=== PATIENT | male | born 1940 | race Caucasian/White ===

== ENCOUNTER → 2018-11-05 | Outpatient (CLI) | payer MEDICARE, OTHER ==
[~2018-11-05] VITALS: Ht 193 cm; Wt 129.3 kg
[~2018-11-05] MED LIST: CATHETER FLUSH 10 ML SYR IV PRN; REGADENOSON 0.4 MG/5 ML SYR (LEXISCAN) IV ONE
[2018-11-05 13:22] VITALS: BP 144/76
[2018-11-05 13:26] VITALS: BP 128/70
--- NOTE | 2018-11-05 20:15 | STRESS TEST ---
DATE OF SERVICE: LEXISCAN MYOVIEW STRESS TEST REPORT REFERRING PHYSICIANS: 1. Wilbur Jones MD 2. Lali Duran APRN Baseline heart rate is 59. Baseline blood pressure 144/76. Baseline EKG is atrial fibrillation with frequent PVCs with right bundle branch block. In summary, the patient was injected with 10.84 mCi of technetium-99 Myoview and the resting images were obtained. Then, the patient received 0.4 mg of Lexiscan, followed by 32.1 mCi of technetium-99 Myoview. Throughout the test, there were no EKG changes. The resting and stress images were reviewed and compared in the short axis, horizontal long axis, and vertical long axis views. Review of the images showed decreased uptake involving the mid to apical anterior wall, true apex and inferoapical segment. There is significant fixed defect with an area of reversibility involving the mid to apical anterior wall and anterolateral wall. SSS 24, SDS 9, TID value 1.14. No gated images were done due to the irregular heartbeat. IN CONCLUSION: 1. The patient tolerated Lexiscan well. 2. No gated images were done due to the irregular heartbeat and frequent PVCs. 3. Reversible ischemia involving the mid to apical anterior wall and anterolateral wall and fixed defect involving the true apex. Job ID: [id number] DocumentID: [id number] Dictated Date: 11/05/2018 17:36:49 Kinesiotherapist Date: 11/05/2018 20:14:26 Dictated By: TORI SANCHEZ MD
== END ==
LOC: CARD 11:12 → EDSEX 11:30
PROVIDERS: ATTEND Internal Medicine Cardiovascular Disease
DX: I48.2 Chronic atrial fibrillation (principal); I10 Essential (primary) hypertension; E78.2 Mixed hyperlipidemia; I08.3 Combined rheumatic disorders of mitral, aortic and tricuspid valves; Z87.891 Personal history of nicotine dependence
CPT/HCPCS: 78452; 93017; 93306

== ENCOUNTER 2019-01-30 11:57 | Outpatient (RCR) | payer MEDICARE | END 2019-03-02 | disposition home or self-care (01) | LOC: ONC 11:57 | PROVIDERS: ATTEND Radiology Radiation Oncology | DX: Z51.0 Encounter for antineoplastic radiation therapy (principal); C44.329 Squamous cell carcinoma of skin of other parts of face; E11.9 Type 2 diabetes mellitus without complications; I10 Essential (primary) hypertension; E78.00 Pure hypercholesterolemia, unspecified; I25.2 Old myocardial infarction; Z79.82 Long term (current) use of aspirin; Z79.84 Long term (current) use of oral hypoglycemic drugs; Z79.899 Other long term (current) drug therapy | CPT/HCPCS: 77290; 77300; 77332; 77334; 77336; 99202; 99204 ==

== ENCOUNTER → 2019-05-12 | Outpatient (CLI) | payer MEDICARE ==
[~2019-05-12] MED LIST changes: +HOLD METFORMIN - RECEIVED CONTRAST 20 ML VIAL IV SCH; +IOHEXOL 350 MG/ML 100 ML (OMNIPAQUE 350) VIAL IV ONE; +NS 100 ML (IVPB) BAG IV ONE; -REGADENOSON 0.4 MG/5 ML SYR (LEXISCAN) IV ONE
--- NOTE | 2019-05-12 11:45 | Diagnostic Imaging Report ---
PROCEDURE: CT head with and without contrast. TECHNIQUE: Multiple contiguous axial images were obtained through the brain before and after the administration of intravenous contrast. Auto Exposure Controls were utilized during the CT exam to meet ALARA standards for radiation dose reduction. INDICATION: History of squamous cell carcinoma. COMPARISON: None. FINDINGS: The ventricles and cortical sulci are diffusely prominent, compatible with age-related volume loss. There are confluent areas of abnormal, low attenuation in the periventricular white matter. This is consistent with small vessel ischemic changes; age-indeterminate. There is no prior study available for comparison. Postcontrast images show no abnormal areas of enhancement. There is no midline shift or mass-effect. No acute intra-axial hemorrhage is seen. There are no abnormal areas of increased or decreased density to suggest acute hemorrhage or edema. No extra-axial masses or collections are present. The bony calvarium is intact. The visualized paranasal sinuses show minimal scattered mucosal thickening. The mastoid air cells are partially opacified bilaterally. IMPRESSION: 1. No acute intracranial abnormality. No CT evidence of mass, acute infarct or intracranial hemorrhage. 2. Small vessel ischemic changes in the periventricular and subcortical white matter; likely chronic. Dictated by: Dictated on workstation # [id number]
--- NOTE | 2019-05-12 11:57 | Diagnostic Imaging Report ---
Clinical indication: Patient with squamous cell cancer. Patient states routine follow-up after surgery several months ago. Exam: Axial CT scan of the neck soft tissue performed without and with 50 cc of Omnipaque 350 IV contrast. Sagittal and coronal reformatted images were created. Auto Exposure Controls were utilized during the CT exam to meet ALARA standards for radiation dose reduction. Comparison: None. Findings: There is dense contrast bolus seen within the right subclavian vein and superior vena cava with very limited contrast opacification of vessels and neck soft tissue. There are postoperative changes in the right side of the lower head and neck region with surgical clips noted. There is thickening of the right platysma muscle and fat stranding along the right side of the head and right upper neck region. The right jugular vein and carotid vein are noted. The right submandibular gland and right parotid gland are surgically absent. There is amorphous density along the right side of the neck in the postoperative area with no definite measurable mass seen. There is a 9 mm x 6 mm lymph node in the right level 2A region seen on series 2, image 39. The remainder of the lymph nodes in the right side of the neck are smaller in size. The nasopharynx, oropharynx, hypopharynx, and laryngeal soft tissue structures are unremarkable. Tonsilloliths are noted. The visualized portions of the oral cavity, and tongue are grossly unremarkable. There is asymmetry in architectural distortion involving the mylohyoid muscle and anterior digastric muscle and right submandibular and sublingual space. There are no bony erosive or destructive changes of the mandible or maxilla or cervical spine. Patient is edentulous. There is a small mucus retention cyst in the left maxillary sinus. Mastoid air cells show small amount of fluid on the right side. There is cervical spine degenerative disease with vertebral body spurs and facet arthropathy. There are calcifications seen within the right thyroid gland region. There is dependent atelectasis involving the bilateral upper lung garza. Impression: 1: Limited evaluation of the neck soft tissue with limited contrast opacification of neck vessels and soft tissue. 2: There are postop changes in the right side of the neck with surgical clips, soft tissue resection changes and anatomical distortion. There is no definite visible mass seen. There is a 9 mm x 6 mm lymph node in the right level IIA region which is the largest lymph node seen in the right neck region. Comparison to previous neck CT scans would better evaluate, if available. 3: There is small amount of fluid in the right mastoid air cells. Dictated by: Dictated on workstation # [id number]
== END ==
LOC: RAD FS 10:25
PROVIDERS: ATTEND Nurse Practitioner Family
DX: C44.329 Squamous cell carcinoma of skin of other parts of face (principal); I67.82 Cerebral ischemia; R59.0 Localized enlarged lymph nodes; Z98.890 Other specified postprocedural states; Z90.89 Acquired absence of other organs
CPT/HCPCS: 70470; 70491

== ENCOUNTER 2019-05-13 13:23 | Outpatient (RCR) | payer MEDICARE, OTHER | END 2019-06-08 | disposition home or self-care (01) | LOC: ONC 13:23 | PROVIDERS: ATTEND Radiology Radiation Oncology | DX: C44.329 Squamous cell carcinoma of skin of other parts of face (principal); E11.9 Type 2 diabetes mellitus without complications; I10 Essential (primary) hypertension; E78.00 Pure hypercholesterolemia, unspecified; I25.2 Old myocardial infarction; Z79.82 Long term (current) use of aspirin; Z79.84 Long term (current) use of oral hypoglycemic drugs; Z79.899 Other long term (current) drug therapy | CPT/HCPCS: 99212; 99213 ==

== ENCOUNTER → 2019-08-05 | Outpatient (CLI) | payer MEDICARE, OTHER ==
[2019-08-05 09:59] LABS: BUN/CREATININE RATIO 47; GFR ESTIMATED > 60
--- NOTE | 2019-08-05 12:33 | Diagnostic Imaging Report ---
INDICATION: History of skin cancer. TECHNIQUE: Routine non contrast-enhanced axial images were obtained from the skull base to the vertex. Auto Exposure Controls were utilized during the CT exam to meet ALARA standards for radiation dose reduction COMPARISON: 05/12/2019 FINDINGS: The ventricles and cortical sulci are diffusely prominent, compatible with age-related volume loss. There are confluent areas of abnormal, low attenuation in the periventricular white matter. This is consistent with chronic small vessel ischemic changes. There is no midline shift or mass-effect. No acute intra-axial hemorrhage is seen. There are no abnormal areas of increased or decreased density to suggest acute hemorrhage or edema. No extra-axial masses or collections are present. The bony calvarium is intact. The visualized paranasal sinuses show minimal scattered mucosal thickening. The mastoid air cells are partially opacified bilaterally. IMPRESSION: 1. No acute intracranial abnormality. No CT evidence of mass, acute infarct or intracranial hemorrhage. 2. Chronic small vessel ischemic changes in the deep white matter. Dictated by: Dictated on workstation # [id number]
--- NOTE | 2019-08-05 12:46 | Diagnostic Imaging Report ---
PROCEDURE: CT neck soft tissue without contrast. TECHNIQUE: Multiple contiguous axial images were obtained through the neck without the use of intravenous contrast. Auto Exposure Controls were utilized during the CT exam to meet ALARA standards for radiation dose reduction. INDICATION: Squamous cell carcinoma, right cheek. COMPARISON: 05/12/2019. FINDINGS: Examination is limited by lack of IV contrast. Again noted are the postoperative changes including multiple surgical clips in the right neck both medial and superficial to the mandible. No new soft tissue density suspicious for a mass is identified. No fluid collections are seen. No lymphadenopathy. The pharyngeal and laryngeal soft tissues are symmetric bilaterally. Tongue base, floor of the mouth, and epiglottis are grossly unremarkable. The thyroid and left submandibular and left parotid gland are negative. The right parotid gland and at least part of the right submandibular gland have been resected. Moderate spondylotic changes in the cervical spine. No acute findings. Skull base is intact. Small effusion in the right mastoid. Mild mucosal thickening in the left maxillary sinus. IMPRESSION: Stable postoperative findings in the right neck both medial and superficial to the mandible including resection of the right parotid gland. No new mass, fluid collection, or lymphadenopathy is identified on this noncontrast exam. Dictated by: Dictated on workstation # [id number]
== END ==
LOC: RAD FS 09:21
PROVIDERS: ATTEND Radiology Radiation Oncology
DX: C44.329 Squamous cell carcinoma of skin of other parts of face (principal); I67.82 Cerebral ischemia; Z98.890 Other specified postprocedural states
CPT/HCPCS: 36415; 70450; 70490; 82565; 84520

== ENCOUNTER → 2019-08-26 | Outpatient (CLI) | payer MEDICARE | LOC: EDSTATUS 06-09 13:54 → ONC 14:01 | PROVIDERS: ATTEND Radiology Radiation Oncology | DX: C44.329 Squamous cell carcinoma of skin of other parts of face (principal); E11.9 Type 2 diabetes mellitus without complications; I10 Essential (primary) hypertension; E78.00 Pure hypercholesterolemia, unspecified; I25.2 Old myocardial infarction; Z79.82 Long term (current) use of aspirin; Z79.84 Long term (current) use of oral hypoglycemic drugs; Z79.899 Other long term (current) drug therapy | CPT/HCPCS: 99213 ==

== ENCOUNTER 2019-09-17 05:36 | Outpatient (CLI) | payer MEDICARE ==
[~2019-09-17] VITALS: Ht 193 cm; Wt 112.7 kg
[2019-09-17] MEDS ORDERED: APIX5TAB PO (12:31)
[2019-09-17] MEDS ORDERED: EMPA10TA PO (12:31)
[2019-09-17] MEDS ORDERED: METF-399 PO (12:31)
[2019-09-17] MEDS ORDERED: ATEN50TA PO (12:31)
[2019-09-17] MEDS ORDERED: ASPI-586 PO (12:31)
[2019-09-17] MEDS ORDERED: OMG1KC PO (12:31)
[2019-09-17] MEDS ORDERED: GLIP5TAB13 PO (12:31)
[2019-09-17] MEDS ORDERED: MULT1CAP27 PO (12:31)
[2019-09-17] MEDS ORDERED: LISI1TAB26 PO (12:31)
== END 2019-09-17 13:09 | disposition home or self-care (01) ==
LOC: PREOP 05:36
PROVIDERS: ATTEND Otolaryngology Otolaryngology/Facial Plastic Surgery
DX: Z01.818 Encounter for other preprocedural examination (principal)

== ENCOUNTER → 2020-02-10 | Outpatient (CLI) | payer MEDICARE, OTHER ==
[~2020-02-10] MED LIST changes: +ACHD5005 PO; +APIX5TAB PO; +ASPI-586 PO; +ATEN50TA PO; +CEPH-507 PO; +EMPA10TA PO; +GLIP5TAB13 PO; +LISI1TAB26 PO; +METF-399 PO; +MULT1CAP27 PO; +OMG1KC PO
[2020-02-10 10:02] LABS: BUN/CREATININE RATIO 45; CALCIUM 9.1 MG/DL (8.5-10.1); CARBON DIOXIDE 23 MMOL/L (21-32); CHLORIDE 101 MMOL/L (98-107); CREATININE SERUM 0.99 MG/DL (0.60-1.30); GFR ESTIMATED > 60; GLUCOSE 163 MG/DL (70-105); POTASSIUM 4.5 MMOL/L (3.6-5.0); SODIUM 137 MMOL/L (135-145)
--- NOTE | 2020-02-10 12:05 | Diagnostic Imaging Report ---
CLINICAL INDICATION: Patient states he has skin cancer on right-side of jaw stated it was removed year ago. Patient with swelling on the right side of jaw. EXAM: CT scan of the neck soft tissue tissue with 75 cc of Omnipaque 350 IV contrast. Coronal and sagittal reformatted images are created. Auto Exposure Controls were utilized during the CT exam to meet ALARA standards for radiation dose reduction. COMPARISON: CT scan of the neck soft tissue dated 08/05/2019. FINDINGS: There is stable postoperative changes seen to the right perimandibular and right upper neck region with resection of the right prostate gland. There are stable amorphous soft tissue thickening and curvilinear opacities likely related to scarring. Stable small size of the partially resected right submandibular gland with surgical clips seen in the region. There is no developing mass seen, fat stranding or fluid collection. There appears to be resection of the anterior body of the right digastric muscle and mylohyoid muscle region. There is stable postoperative changes with distortion of the sublingual and submandibular regions. The left parotid gland and left submandibular glands are unremarkable. The nasopharynx, oropharynx, hypopharynx, and laryngeal soft tissue structures are stable. Tonsilliths are noted. Stable asymmetry of the arytenoid cartilages with the right side slightly more prominent than the left and slight medial position of the right true vocal cord compared to the right side. There is no measurable mass seen. There is no neck lymphadenopathy. Stable small calcifications and heterogeneous appearance of the right thyroid gland. Visualized upper lung garza are clear. Stable cervical spine degenerative disease. IMPRESSION: 1: There is no evidence of interval developing mass, inflammatory process, fluid collection, or lymphadenopathy. 2: Stable postoperative changes to the right perimandibular and submandibular region and right upper aspect of the neck. There is multiple surgical clips in the region. There is resection of right parotid gland with adjacent scarring, suspected partial resection of the right submandibular gland and right submandibular/sublingual space musculature. These have stable appearance with no developing mass. 3: Stable small calcifications and heterogeneous. If the thyroid gland has not been previously evaluated, thyroid ultrasound is suggested. Dictated by: Dictated on workstation # [id number]
== END ==
LOC: RAD FS 09:10
PROVIDERS: ATTEND Otolaryngology
DX: R22.0 Localized swelling, mass and lump, head (principal); Z85.828 Personal history of other malignant neoplasm of skin
CPT/HCPCS: 36415; 70491; 80048

== ENCOUNTER → 2020-08-26 | Outpatient (CLI) | payer MEDICARE ==
[2020-08-26 09:51] LABS: CREATININE SERUM 0.92 MG/DL (0.60-1.30); GFR ESTIMATED > 60
[2020-08-26 09:52] LABS: BUN/CREATININE RATIO 42
--- NOTE | 2020-08-26 12:15 | Diagnostic Imaging Report ---
CT HEAD W WO/NECK W Technique: CT imaging of the head without and with IV contrast. CT imaging of the neck with IV contrast. Automatic exposure controls were utilized to keep dose as low as reasonably achievable. 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 Findings: HEAD: Precontrast imaging shows no intracranial hyperdense hemorrhage or space-occupying mass. No hydrocephalus or midline shift. Elliott-white matter differentiation is well-preserved. Mild periventricular white matter hypoattenuation most compatible with chronic microvascular ischemic disease. Postcontrast imaging shows no pathologic masslike enhancement. No lytic lesion within the calvarium. Trace right mastoid effusion. NECK: Stable postoperative changes in the right aspect of the neck which include parotidectomy and at least partial removal of the right submandibular gland. Numerous surgical clips within the right aspect of the face and neck are unchanged. No cervical lymphadenopathy or new mass lesion has developed to suggest local recurrence. Calcifications in the tonsils are compatible with remote infection. Heterogeneous thyroid is unchanged with some punctate calcifications. Airway remains widely patent. No retropharyngeal fluid collection. Lung apices are clear. Impression: 1. No intracranial space-occupying mass, vasogenic edema or pathologic enhancement to suggest metastases. 2. Stable postoperative changes in the right hemiface and neck. No features of local recurrence. Dictated by: Dictated on workstation # [id number]
== END ==
LOC: RAD 09:21
PROVIDERS: ATTEND Radiology Radiation Oncology
DX: C44.329 Squamous cell carcinoma of skin of other parts of face (principal); Z98.890 Other specified postprocedural states
CPT/HCPCS: 36415; 70470; 70491; 82565; 84520

== ENCOUNTER 2020-09-08 14:20 | Outpatient (RCR) | payer MEDICARE ==
[~2020-09-08 14:20] MED LIST changes: -CATHETER FLUSH 10 ML SYR IV PRN; -HOLD METFORMIN - RECEIVED CONTRAST 20 ML VIAL IV SCH; -IOHEXOL 350 MG/ML 100 ML (OMNIPAQUE 350) VIAL IV ONE; -NS 100 ML (IVPB) BAG IV ONE
[2020-09-27] MEDS ORDERED: MULT-1136 PO (14:19)
[2020-09-27] MEDS ORDERED: GLBR5T PO (14:19)
[2020-09-27] MEDS ORDERED: APIX5TAB PO (14:19)
[2020-09-27] MEDS ORDERED: LISI20TA26 PO (14:19)
[2020-09-27] MEDS ORDERED: ATEN25TA PO (14:19)
[2020-09-27] MEDS ORDERED: ASPI-999 PO (14:19)
[2020-09-29] MEDS ORDERED: CEPH500T PO (11:01)
[2020-09-29] MEDS ORDERED: ACHD5005 PO (11:01)
[2020-11-02] MEDS ORDERED: ASPI-1238 PO (09:49)
[2020-11-02] MEDS ORDERED: APIX5TAB PO (09:49)
== END 2020-12-07 | disposition home or self-care (01) ==
LOC: ONC 14:20
PROVIDERS: ATTEND Radiology Radiation Oncology
DX: C44.320 Squamous cell carcinoma of skin of unspecified parts of face (principal); I11.0 Hypertensive heart disease with heart failure; I25.10 Atherosclerotic heart disease of native coronary artery without angina pectoris; E78.2 Mixed hyperlipidemia; I45.10 Unspecified right bundle-branch block; I48.21 Permanent atrial fibrillation; I50.22 Chronic systolic (congestive) heart failure; I65.29 Occlusion and stenosis of unspecified carotid artery; E11.610 Type 2 diabetes mellitus with diabetic neuropathic arthropathy; Z79.01 Long term (current) use of anticoagulants; Z72.0 Tobacco use; Z79.84 Long term (current) use of oral hypoglycemic drugs; Z79.82 Long term (current) use of aspirin
CPT/HCPCS: 99213

== ENCOUNTER → 2020-09-23 | Outpatient (CLI) | payer MEDICARE | LOC: CARD 11:31 | PROVIDERS: ATTEND Physician Assistant | DX: I25.10 Atherosclerotic heart disease of native coronary artery without angina pectoris (principal); I10 Essential (primary) hypertension; I08.3 Combined rheumatic disorders of mitral, aortic and tricuspid valves | CPT/HCPCS: 93306 ==

== ENCOUNTER 2020-09-27 05:28 | Outpatient (RCR) | payer MEDICARE ==
[~2020-09-27] VITALS: Ht 193 cm; Wt 114.0 kg
[2020-09-27 09:25] VITALS: BP 142/75
[2020-09-27 09:46] LABS: BASOPHILS % (AUTO) 1 % (0-10); EOSINOPHILS # (AUTO) 0.1 10^3/uL (0.0-0.3); EOSINOPHILS % (AUTO) 2 % (0-10); HEMATOCRIT 45 % (40-54); HEMOGLOBIN 14.3 g/dL (13.3-17.7); LYMPHOCYTES # (AUTO) 0.6 10^3/uL (1.0-4.0); LYMPHOCYTES % (AUTO) 14 % (12-44); MEAN CORPUSCULAR HEMOGLOBIN 28 pg (25-34); MEAN CORPUSCULAR HGB CONC 32 g/dL (32-36); MEAN CORPUSCULAR VOLUME 89 fL (80-99); MEAN PLATELET VOLUME 10.6 fL (9.0-12.2); MONOCYTES # (AUTO) 0.3 10^3/uL (0.0-1.0); MONOCYTES % (AUTO) 6 % (0-12); NEUTROPHILS # (AUTO) 3.4 10^3/uL (1.8-7.8); NEUTROPHILS % (AUTO) 77 % (42-75); PLATELET COUNT 147 10^3/uL (130-400); WHITE BLOOD COUNT 4.4 10^3/uL (4.3-11.0)
[2020-09-27 10:06] LABS: BUN/CREATININE RATIO 37; CALCIUM 9.2 MG/DL (8.5-10.1); CARBON DIOXIDE 23 MMOL/L (21-32); CHLORIDE 105 MMOL/L (98-107); CREATININE SERUM 1.01 MG/DL (0.60-1.30); GFR ESTIMATED > 60; GLUCOSE 146 MG/DL (70-105); POTASSIUM 4.3 MMOL/L (3.6-5.0); SODIUM 139 MMOL/L (135-145)
[2020-09-27] MEDS ORDERED: MULT-1136 PO (14:19)
[2020-09-27] MEDS ORDERED: ATEN25TA PO (14:19)
[2020-09-27] MEDS ORDERED: GLBR5T PO (14:19)
[2020-09-27] MEDS ORDERED: APIX5TAB PO (14:19)
[2020-09-27] MEDS ORDERED: LISI20TA26 PO (14:19)
[2020-09-27] MEDS ORDERED: ASPI-999 PO (14:19)
== END 2020-09-27 14:23 | disposition home or self-care (01) ==
LOC: PREOP 05:28
PROVIDERS: ATTEND Otolaryngology Otolaryngology/Facial Plastic Surgery
DX: Z01.812 Encounter for preprocedural laboratory examination (principal); H93.8X2 Other specified disorders of left ear; Z20.822 Contact with and (suspected) exposure to COVID-19
CPT/HCPCS: 80048; 85025; 87081; U0002; 36415; 87635

== ENCOUNTER 2020-09-29 07:08 | Day surgery (SDC) | payer MEDICARE ==
[~2020-09-29] VITALS: Ht 200.6 cm; Wt 114.0 kg
[2020-09-29] VITALS (9 sets, daily range): BP systolic 116–134; BP diastolic 65–79
[~2020-09-29 07:08] MED LIST changes: +ASPI-999 PO; +ATEN25TA PO; +GLBR5T PO; +LISI20TA26 PO; +MULT-1136 PO
[2020-09-29] MEDS ORDERED: LACTATED RINGERS 1,000 ML IV PRN (07:15)
[2020-09-29] MEDS ORDERED: LIDOCAINE/EPI 1%-1:200,000 (XYLOCAINE) 10 ML VIAL ONE (07:36)
[2020-09-29] MEDS ORDERED: MUPIROCIN 2% OINT 22 GM (BACTROBAN) TUBE ONE (07:36)
[2020-09-29] MEDS ORDERED: SEVOFLURANE (ULTANE) 15 ML INHAL SOLN ONE ×2 (07:50→09:06)
[2020-09-29] MEDS ORDERED: fentaNYL INJECTION 100 MCG/2 ML AMP ONE (07:50)
[2020-09-29] MEDS ORDERED: proPOfol 200 MG/20 ML (DIPRIVAN) VIAL IV ONE (07:50)
[2020-09-29] MEDS ORDERED: ONDANSETRON 4 MG/2 ML (SDV) Z0FRAN ONE (07:50)
[2020-09-29] MEDS ORDERED: LIDOCAINE PF 2% 5 ML (XYLOCAINE) VIAL ONE (07:50)
[2020-09-29] MEDS ORDERED: MIDAZOLAM 2 MG/2 ML (VERSED) VIAL ONE (07:50)
--- NOTE | 2020-09-29 08:10 | Progress Note-Pre Operative ---
Pre-Operative Progress Note H&P Reviewed The H&P was reviewed, patient examined and no changes noted. Date Seen by Provider: Sep 29, 2020 Time Seen by Provider: 07:30 Date H&P Reviewed: Sep 29, 2020 Time H&P Reviewed: 07:30 Pre-Operative Diagnosis: Left Ear Lesion YADIRA MATA MD Sep 29, 2020 08:10
[2020-09-29] MEDS ORDERED: fentaNYL INJECTION 100 MCG/2 ML AMP IVP ONE (08:45)
[2020-09-29] MEDS ORDERED: MEPERIDINE (DEMEROL) INJ 50 MG/ML IVP ONE (08:45)
[2020-09-29] MEDS ORDERED: morphine INJ 10 MG/ML 1ML (SYR OR VIAL) IVP ONE (08:45)
--- NOTE | 2020-09-29 08:51 | Progress Note-Post Operative ---
Post-Operative Progess Note Surgeon (s)/Gi Tech (s) Surgeon YADIRA MATA MD Gi Tech n/a Pre-Operative Diagnosis Left Ear Lesion Post-Operative Diagnosis same Post-Op Procedure Note Date of Procedure: Sep 29, 2020 Name of Procedure Performed: Excision of Left Ear Lesion, Reconstruction with Local Transposition Flap Description & Findings Description and Findings: n/a Anesthesia Type lma Estimated Blood Loss minimal Packing none. Specimen(s) collected/removed left EAr Lesion to path for frozen section YADIRA MATA MD Sep 29, 2020 08:51
[2020-09-29] MEDS ORDERED: HYDROcodone/APAP 5 MG/325 MG (LORTAB) TAB PO PRN (09:00)
[2020-09-29] MEDS ORDERED: ACETAMINOPHEN 325 MG TABLET PO PRN (09:00)
[2020-09-29] MEDS ORDERED: CEPH500T PO (11:01)
[2020-09-29] MEDS ORDERED: ACHD5005 PO (11:01)
--- NOTE | 2020-10-06 07:01 | Anesthesia-General Post-Op ---
General Significant Intra-Op Events Notes postop addendum for GA on 09-29-20 at 1000 Patient Condition Mental Status/LOC: Same as Preop Cardiovascular: Satisfactory Nausea/Vomiting: Absent Respiratory: Satisfactory Pain: Controlled Complications: Absent Post Op Complications Complications None Follow Up Care/Instructions Patient Instructions None needed. Anesthesia/Patient Condition Patient Condition Patient is doing well, no complaints, stable vital signs, no apparent adverse a nesthesia problems. No complications reported per nursing. DEJA NEVES CRNA Oct 06, 2020 07:01
== END 2020-09-29 11:30 | disposition home or self-care (01) ==
LOC: SDC 07:08
PROVIDERS: ATTEND Otolaryngology Otolaryngology/Facial Plastic Surgery
DX: C44.219 Basal cell carcinoma of skin of left ear and external auricular canal (principal); I10 Essential (primary) hypertension; I25.10 Atherosclerotic heart disease of native coronary artery without angina pectoris; E11.9 Type 2 diabetes mellitus without complications; E78.2 Mixed hyperlipidemia; I48.20 Chronic atrial fibrillation, unspecified; I65.23 Occlusion and stenosis of bilateral carotid arteries; Z79.899 Other long term (current) drug therapy; Z79.01 Long term (current) use of anticoagulants; Z79.82 Long term (current) use of aspirin; Z79.84 Long term (current) use of oral hypoglycemic drugs; Z87.891 Personal history of nicotine dependence
CPT/HCPCS: 82962; 87081; 88305; 88331; 88332

== ENCOUNTER → 2020-10-24 | Outpatient (CLI) | payer MEDICARE ==
[~2020-10-24] VITALS: Ht 193 cm; Wt 113.0 kg
[~2020-10-24] MED LIST changes: +CATHETER FLUSH 10 ML SYR IV PRN; +CEPH500T PO; +REGADENOSON 0.4 MG/5 ML SYR (LEXISCAN) IV ONE
[2020-10-24 09:45] VITALS: BP 147/82
--- NOTE | 2020-10-24 18:31 | Cardiology Stress Test Report ---
Stress Test Report Date of Procedure/Referring: Date of Procedure: Oct 24, 2020 PCP Fara Wren Admitting Physician Wilbur Jones MD Indications: HTN Baseline Heart Rate: 59 Baseline Blood Pressure: Blood Pressure Systolic: 147 Blood Pressure Diastolic: 82 Baseline Vitals Vital Signs Date Time Temp Pulse Resp B/P (MAP) Pulse Ox O2 Delivery O2 Flow Rate FiO2 10/24/20 09:45 60 18 147/82 (103) 98 Room Air Baseline EKG: Baseline EKG: RBBB Summary After explaining the procedure to the patient, he signed a consent and then brought to the stress nuclear laboratory. Patient received 0.4 mg Lexiscan for stress test, ECG, heart rate and blood pressure were monitored continuously. Resting and stress dose of radio tracer were injected, imaging was acquired and reviewed in short axis, horizontal long axis and vertical long axis views. TID: 1.16 SSS: 14 SDS: 2 EF: 46 1. Patient tolerated Lexiscan well 2. Baseline right bundle branch block persisted during test 3. Decreased uptake involving the mid to apical anterior wall, true apex, mild reversibility was noted suggestive of ischemia 4. Normal left ventricular size with hypokinesia of the anterior wall and anterior apex, EF 46% TORI SANCHEZ MD Oct 24, 2020 18:31
== END ==
LOC: CARD 08:30
PROVIDERS: ATTEND Physician Assistant
DX: I10 Essential (primary) hypertension (principal); I25.10 Atherosclerotic heart disease of native coronary artery without angina pectoris
CPT/HCPCS: 78452; 93017; A9502

== ENCOUNTER 2020-11-02 11:00 | Day surgery (SDC) | payer MEDICARE ==
[~2020-11-02] VITALS: Ht 190.5 cm; Wt 113.9 kg
[2020-11-02] VITALS (15 sets, daily range): BP systolic 115–161; BP diastolic 60–99
--- NOTE | 2020-11-02 09:49 | Diagnostic Imaging Report ---
Indication: Fatigue, atrial fibrillation Findings: The heart size and configuration normal. There is no failure, effusion or pneumothorax. Impression: No acute appearing abnormality. Dictated by: Dictated on workstation # [id number]
[2020-11-02 09:58] LABS: HEMOGLOBIN 14.7 g/dL (13.3-17.7); MEAN PLATELET VOLUME 10.9 fL (9.0-12.2); WHITE BLOOD COUNT 4.2 10^3/uL (4.3-11.0)
[2020-11-02 10:12] LABS: ALANINE AMINOTRANSFERASE 19 U/L (0-55); ALBUMIN 4.3 GM/DL (3.2-4.5); ALKALINE PHOSPHATASE 60 U/L (40-136); BILIRUBIN,TOTAL 1.1 MG/DL (0.1-1.0); BUN/CREATININE RATIO 39; CALCIUM 9.4 MG/DL (8.5-10.1); CARBON DIOXIDE 25 MMOL/L (21-32); CHLORIDE 102 MMOL/L (98-107); CHOLESTEROL 159 MG/DL (< 200); CREATININE SERUM 1.01 MG/DL (0.60-1.30); GFR ESTIMATED > 60; GLUCOSE 156 MG/DL (70-105); HDL CHOLESTEROL 45 MG/DL (40-60); POTASSIUM 4.4 MMOL/L (3.6-5.0); SODIUM 138 MMOL/L (135-145); TOTAL PROTEIN 7.6 GM/DL (6.4-8.2); TRIGLYCERIDES 63 MG/DL (<150); VLDL CHOLESTEROL 13 MG/DL (5-40)
[2020-11-02 10:15] LABS: INR 1.1 (0.8-1.4); PROTHROMBIN TIME PATIENT 14.3 SEC (12.2-14.7)
[~2020-11-02 11:00] MED LIST changes: +ASPI-1238 PO; -CATHETER FLUSH 10 ML SYR IV PRN; +HEParin (CATH LAB) 2,000 ML IV ONE; +LIDOCAINE 1% INJ 20 ML 20 ML VIAL ONE; +NS IV 1000 ML 1,000 ML IV SCH; +NS IV 1000 ML 1,000 ML ONE; -REGADENOSON 0.4 MG/5 ML SYR (LEXISCAN) IV ONE
[2020-11-02] MEDS ORDERED: VERAPAMIL 5 MG/2 ML (CALAN) VIAL IV ONE (11:41)
[2020-11-02] MEDS ORDERED: MIDAZOLAM 5 MG/5 ML (VERSED) VIAL ONE (11:41)
[2020-11-02] MEDS ORDERED: fentaNYL INJ 100 MCG/2 ML AMP ONE (11:41)
[2020-11-02] MEDS ORDERED: HEParin 1000 UNIT/ML (10ML VIAL) FOR BOLUS ONE (11:42)
[2020-11-02] MEDS ORDERED: NITRO DRIP 25000 MCG/D5W 250 ML IV ONE (11:42)
--- NOTE | 2020-11-02 12:59 | Cardiac Procedure Note-CS/ASA ---
Pre-Procedure Note Pre-Op Procedure Note H&P Reviewed The H&P was reviewed, patient examined and no changes noted. Date H&P Reviewed: Nov 02, 2020 Time H&P Reviewed: 09:00 Conscious Sedation Pre-Proced Time 09:00 ASA Score 3 For ASA 3 and 4: Consider anesthesia and medical clearance. Also, for patients with a history of failed moderate sedation consider anesthesia. Airway Lungs Heart ASA score ASA 1: a normal healthy patient ASA 2: a patient with a mild systemic disease (mid diabetes, controlled hypertension, obesity x ASA 3: a patient with a severe systemic disease that limits activity (angina, COPD, prior Myocardial infarction) ASA 4: a patient with an incapacitating disease that is a constant threat to life (CHF, renal failure) ASA 5: a moribund patient not expected to survive 24 hrs. (ruptured aneurysm) ASA 6: a declared brain- patient whose organs are being harvested. For emergent operations, add the letter E after the classification Mallampati Classification Grade 3 Sedation Plan Analgesia, Amnesia, Plan communicated to team members, Discussed options with patient/fam, Discussed risks with patient/fam The patient is an appropriate candidate to undergo the planned procedure, sedation, and anesthesia. The patient immediately re-assessed prior to indication. TORI SANCHEZ MD Nov 02, 2020 12:59
[2020-11-02] MEDS ORDERED: NS IV 1000 ML 1,000 ML IV SCH (13:00)
--- NOTE | 2020-11-02 13:01 | Discharge Inst-Post CATH ---
Discharge Inst-CATH/EP Problems Reviewed?: Yes Post Cardiac Cath/EP D/C Inst Follow Up/Plan Appointment with Dr. Pemberton's office in 4 weeks <b>CARDIAC CATH/EP PROCEDURE DISCHARGE INSTRUCTIONS</b> ACTIVITY * Go Home directly and rest. * Limit activity of the leg (or wrist if it was used) for 7 days including aerobics, swimming, jogging, bicycling, etc. * Restrict stair-climbing for 7 days if possible, if not, climb up with your non-cath leg, then bring together on the same step. * Avoid lifting, pushing, pulling or excessive movement of the affected extremity for 7 days. * Customary sexual activity may be resumed after 2 days-use caution not to use a position that strains or causes pain to the affected extremity. * No driving for 24 hours. * NO SMOKING. * Avoid straining for bowel movements for 7 days. * Gentle walking on level ground is allowed. * Returning to work will depend on the type of procedure and the results. Your doctor will discuss this with you. CALL YOUR DOCTOR FOR ANY OF THE FOLLOWING: *If bleeding from the puncture site occurs- Apply gentle pressure to site with clean cloth and call your doctor or EMS. * If a knot or lump forms under the skin, increases in size, or causes pain. * If bruising appears to be worsening or moving further down your leg instead of disappearing. * Temperature above 101 F. CARE OF YOUR GROIN INCISION; * Bruising or purple discoloration of the skin near the puncture site is common. * You may shower only, no bathtub bathing for 5 days. Be careful to avoid slipping as your leg may feel stiff. * If a closure device was used on your femoral artery, please see the attached guide regarding care of the device and your leg. * Leave dressing on FOR 24 hours. CARE OF YOUR WRIST INCISION; * Bruising or purple discoloration of the skin near the puncture site is common. * You may shower. * DO NOT submerge wrist. * Leave dressing on FOR 24 hours. TORI PEMBERTON MD Nov 02, 2020 13:01
--- NOTE | 2020-11-02 13:12 | Cardiac Cath Report ---
Cardiac Cath Report Physician (s)/Preform Plate Maker (s) Physician TORI SANCHEZ MD Pre-Procedure Diagnosis Pre-Procedure Diagnosis: Coronary artery disease Post-Procedure Note Procedure Start Date: Nov 02, 2020 Name of Procedure: Left heart catheterization Attempt for intervention on the LAD Findings/Procedure Note PROCEDURE NOTE: 80 years old gentleman with history of hypertension, hyperlipidemia and diabetes mellitus, paroxysmal atrial fibrillation, had abnormal stress test with anterior wall ischemia, scheduled for cardiac catheterization possible PTCA. After explaining the procedure to the patient, all pros and cons were explained, all questions were answered. The patient signed the consent and then he was placed on the cardiac catheterization laboratory. Groin was prepped SL fashion local anesthesia was used. Sheath placed in the right radial artery, [place] catheter was advanced to the left ventricular cavity then to the right coronary artery, angiogram was done left coronary artery evaluation done showing total occlusion of the LAD. Patient received additional 3000 units of heparin, I used EBU 4 guide then attempted intervention on the chronically totally occluded LAD that is being filled by collaterals. I used BMW wire then whisper extra-support, I was unable to reach the lumen of the LAD, my wire kept redirecting to the septum. Due to the fact that the chronic total occlusion is stable I decided to abort the procedure and refer him for a tertiary care center for outpatient attempt for the SCALE CLERK At the end of the procedure the sheath was removed. Vascular band deployed FINDINGS: Hemodynamics LV 105/13, end-diastolic pressure of 13 Aorta 104/62 mean of 76 ANATOMY: Left Main is free of obstructive disease Left Anterior Descending has chronic total occlusion proximally reconstructed by collaterals at the midportion, attempt for intervention has failed. Left Circumflex has mild disease nonobstructive disease giving collateral to the LAD Right Coronory Artery is dominant artery with no obstructive disease LV Gram was not done, pressure was measured CONCLUSION: 1. Chronic total occlusion in the proximal LAD reconstructed by collateral, the area on the SPECT images has mild reversibility suggestive of viable myocardium especially with a preserved left ventricular function. I attempted percutaneous intervention using multiple wire without success in reaching the distal lumen of the LAD. I decided to abort the procedure and refer him to a tertiary care center for SCALE CLERK intervention 2. Otherwise mild coronary artery disease in the circumflex and right coronary artery 3. Normal left ventricular end-diastolic pressure DISCUSSION AND RECOMMENDATION: Patient will be referred for attempt for SCALE CLERK intervention, Dr. Duke was contacted and he accepted to evaluate the patient as an outpatient Anesthesia Type: Conscious Sedation Estimated blood loss (mL): 35 ml Contrast Amount: 12 ml Total Radiation Dose: 1514 mGy Post-Procedure Diagnosis Post-operative diagnosis: Chest pain Coronary artery disease Paroxysmal atrial fibrillation Hypertension TORI SANCHEZ MD Nov 02, 2020 13:12
== END 2020-11-02 17:40 ==
LOC: SDC 13:04 → CATH 17:40
PROVIDERS: ATTEND Internal Medicine Cardiovascular Disease
DX: I25.10 Atherosclerotic heart disease of native coronary artery without angina pectoris (principal); I48.0 Paroxysmal atrial fibrillation; I10 Essential (primary) hypertension; E11.9 Type 2 diabetes mellitus without complications; E78.2 Mixed hyperlipidemia; I48.20 Chronic atrial fibrillation, unspecified; I65.23 Occlusion and stenosis of bilateral carotid arteries; Z79.82 Long term (current) use of aspirin; Z79.01 Long term (current) use of anticoagulants; Z79.84 Long term (current) use of oral hypoglycemic drugs; Z79.899 Other long term (current) drug therapy; Z85.828 Personal history of other malignant neoplasm of skin; Z87.891 Personal history of nicotine dependence; Z92.3 Personal history of irradiation
CPT/HCPCS: 71045; 80053; 80061; 85027; 85610; 85730; 87081; 93458; C1769 ×2; C1887; C1894; 36415

== ENCOUNTER 2021-03-23 09:54 | Outpatient (RCR) | payer MEDICARE ==
[~2021-03-23 09:54] MED LIST changes: -HEParin (CATH LAB) 2,000 ML IV ONE; -LIDOCAINE 1% INJ 20 ML 20 ML VIAL ONE; -LISI1TAB26 PO; +LISI1TAB48 PO; -NS IV 1000 ML 1,000 ML IV SCH; -NS IV 1000 ML 1,000 ML ONE
== END 2021-06-21 | disposition home or self-care (01) ==
LOC: ONC 09:54
PROVIDERS: ATTEND Radiology Radiation Oncology
DX: C44.329 Squamous cell carcinoma of skin of other parts of face (principal); I25.10 Atherosclerotic heart disease of native coronary artery without angina pectoris; E78.2 Mixed hyperlipidemia; I48.21 Permanent atrial fibrillation; I11.0 Hypertensive heart disease with heart failure; I50.22 Chronic systolic (congestive) heart failure; I65.29 Occlusion and stenosis of unspecified carotid artery; Z79.01 Long term (current) use of anticoagulants; Z72.0 Tobacco use; Z79.84 Long term (current) use of oral hypoglycemic drugs; Z79.82 Long term (current) use of aspirin
CPT/HCPCS: 99213

== ENCOUNTER → 2021-12-21 | Outpatient (CLI) | payer MEDICARE | LOC: CARDFS 10:29 | PROVIDERS: ATTEND Internal Medicine Cardiovascular Disease | DX: I08.0 Rheumatic disorders of both mitral and aortic valves (principal); I11.9 Hypertensive heart disease without heart failure | CPT/HCPCS: 93306 ==

== ENCOUNTER → 2021-12-28 | Outpatient (CLI) | payer MEDICARE ==
--- NOTE | 2021-12-28 16:01 | Diagnostic Imaging Report ---
EXAMINATION: Left foot radiographs, 3 views. COMPARISON: None. HISTORY: 81-year-old male, history of left great toe injury with infection. Injury at the level of the nailbed. FINDINGS: The navicular is dorsally subluxed relative to the talus. The talus appears inferiorly subluxed relative to the midfoot in general. There is fragmentation of the navicular with portions of the navicular being medially subluxed relative to the medial cuneiform. There is additional osseous fragmentation at the level of the midfoot and osseous irregularity. The alignment of the metatarsal bases related to their cuneiform and cuboid articulations appears to be relatively well preserved. There is degenerative type enthesopathy at the Achilles tendon insertion. There is no identified cortical or aggressive bone destruction at the level of the first digit phalanges. There is no identified acute fracture. There is no radiopaque foreign body. IMPRESSION: 1. No radiographic evidence of osteomyelitis at the level of the first digit. 2. Fragmentation and abnormal alignment which can be seen with Charcot arthropathy or crystalline arthropathy. Sequela of septic arthritis is also considered. Recommend correlation clinically. Dictated by: Dictated on workstation # [id number]
== END ==
LOC: RAD FS 13:38
PROVIDERS: ATTEND Nurse Practitioner Family
DX: S99.922A Unspecified injury of left foot, initial encounter (principal); L08.9 Local infection of the skin and subcutaneous tissue, unspecified; X58.XXXA Exposure to other specified factors, initial encounter
CPT/HCPCS: 73630